=== PATIENT | male | born 1995 ===

== ENCOUNTER 2021-11-27 09:29 | Outpatient (REF) | payer MEDICARE, MEDICAID, SELFPAY ==
[2021-11-27 10:53] LABS: Estimated Average Glucose 111 mg/dL; Hemoglobin A1c % 5.5 %
[2021-11-27 11:07] LABS: Alanine Aminotransferase 23 U/L (0-40); Albumin Level 4.4 g/dL (3.5-5.0); Alkaline Phosphatase 78 U/L (39-117); Aspartate Amino Transferase 14 U/L (5-37); Bilirubin Direct 0.2 mg/dL (0.0-0.5); Bilirubin Total 0.5 mg/dL (0.0-1.0); Total Protein 7.1 g/dL (6.5-8.0)
[2021-11-27 11:21] LABS: Valproate 42.1 mcg/mL (50.0-100.0)
[2021-11-27 11:32] LABS: Insulin 16 uU/mL (2-29)
[2021-11-29 08:26] LABS: Prolactin 11.7 ng/mL (2.0-18.0)
== END 2021-11-27 09:30 | disposition home or self-care (01) ==
LOC: HO.LAB 09:29
PROVIDERS: PCP Internal Medicine; Visit Provider Registered Nurse Psychiatric/Mental Health
DX: F84.0 Autistic disorder (principal); Z51.81 Encounter for therapeutic drug level monitoring; Z79.899 Other long term (current) drug therapy
CPT/HCPCS: 36415; 80076; 80164; 83036; 83525; 84146

== ENCOUNTER 2021-12-29 10:09 | Outpatient (REF) | payer MEDICARE, MEDICAID, SELFPAY ==
[2021-12-29 11:18] LABS: Estimated Average Glucose 108 mg/dL; Hemoglobin A1c % 5.4 %
[2021-12-29 11:25] LABS: Cholesterol 193 mg/dL; HDL Cholesterol 39 mg/dL; LDL Cholesterol Calculated 121 mg/dl; Triglycerides 169 mg/dL
[2021-12-29 11:37] LABS: Insulin 16 uU/mL (2-29)
[2021-12-29 11:50] LABS: Valproate 60.5 mcg/mL (50.0-100.0)
== END 2021-12-29 10:10 | disposition home or self-care (01) ==
LOC: HO.LAB 10:09
PROVIDERS: PCP Internal Medicine; Visit Provider Registered Nurse Psychiatric/Mental Health
DX: F84.0 Autistic disorder (principal); Z79.899 Other long term (current) drug therapy
CPT/HCPCS: 36415; 80061; 80164; 83036; 83525; 84146

== ENCOUNTER 2023-04-03 17:02 | Emergency (ER) | payer MEDICARE, MEDICAID, SELFPAY ==
[2023-04-03 17:06] VITALS: BP 150/100; PULSE 98; RESP 20; TEMP 36; O2SAT 98; BMI 22.4
--- NOTE | 2023-04-03 17:15 | ED_ITS ---
HPI - General Adult General Chief complaint: Fall Stated complaint: Fall Time Seen by Provider: 04/03/23 17:15 Source: patient and family (patient's sister) Mode of arrival: ambulatory Limitations: no limitations History of Present Illness HPI narrative: Patient is a 27 year old assigned male at with a history of left sided blindness presenting to the emergency department today with a face laceration. Patient states that yesterday he tried to get up in the middle of the night when he fell and hit the left side of his face. Patient denies any loss of consciousness, dizziness, lightheadedness, abdominal pain, nausea, vomiting, fever, chills, chest pain, difficulty breathing, shortness of breath, back pain, night sweats, pain with urination, increased urinary frequency, increased urinary urgency, blood in his urine or stool, syncope or a near syncopal episode, recent trauma or falls, bowel incontinence, bladder incontinence, bowel retention, bladder retention, or any other complaints at this time. Onset (ago): day(s) (1) Location: face and left Severity: mild Severity scale (1-10): 2 Relieving factors: none Exacerbating factors: none Associated symptoms: denies other symptoms Treatments prior to arrival: none Related Data Previous Rx's Medication Instructions Recorded cefuroxime axetil 250 mg tablet 250 mg PO BID 7 days #14 tabs 04/03/23 Allergies Allergy/AdvReac Type Severity Reaction Status Date / Time No Known Allergies Allergy Verified 04/03/23 17:09 Review of Systems 2 Constitutional: Constitutional: Reports no additional constitutional complaints, Denies chills, Denies fever(s) and Denies night sweats Eyes: Eyes: Reports no additional eye complaints Comments: chronically blind in left eye ENT: Denies dizziness Comments: left sided facial injury Cardiovascular: Cardiovascular: Reports no additional cardiovascular complaints, Denies chest pain, Denies lightheadedness, Denies Loss of Consciousness and Denies dyspnea Respiratory: Respiratory: Reports no additional respiratory complaints and Denies dyspnea Gastrointestinal: Gastrointestinal: Reports no additional gastrointestinal complaints, Denies abdominal pain, Denies melena, Denies hematochezia, Denies change in bowel habits and Denies change in stool character Genitourinary: Genitourinary: Reports no additional male genitourinary complaints, Denies hematuria, Denies oliguria, Denies difficulty urinating, Denies dysuria, Denies urinary frequency, Denies urinary hesitancy, Denies urinary incontinence and Denies urinary urgency Musculoskeletal: Musculoskeletal: Reports no additional musculoskeletal complaints, Denies numbness and Denies tingling Neurologic: Denies dizziness, Denies numbness and Denies tingling Psychiatric: Psychiatric: Reports no additional psychiatric complaints Endocrine: Endocrine: Reports no additional endocrine complaints Hematologic/Lymphatic: Hematologic/Lymphatic: Reports no additional hematologic/lymphatic complaints Allergic/Immunologic: Allergic/Immunologic: Reports no additional allergic/immunologic complaints PMFSH Past Medical History Attestation statement: The following information was validated with the patient. (all information validated with the patient's sister) Source: old records reviewed, obtained from family (patient's sister provided additional history and confirmed the history provided by the patient. ) and nursing notes reviewed Social History Social History Advance Directives: No Advance Directives Information Provided: No Physical Exam ED Vital Signs: Vital Signs - 24 hr 04/03/23 17:06 Temperature 96.8 F Pulse Rate 98 Respiratory Rate 20 Blood Pressure 150/100 H Pulse Oximetry 98 Oxygen Delivery Method Room Air BMI result Body Mass Index 22.4 Const General: cooperative, no acute distress, alert and awake Nutritional Appearance: well nourished Orientation/consciousness: patient oriented x3 Limitations: no limitations HENMT Ears: hearing grossly normal bilaterally and external ears normal General nose exam: Normal external nose present, no nasal discharge noted and no epistaxis Face images: 2 1. 1.5cm jagged laceration, no gaping Mouth: Normal oral and palatal mucosa present, no drooling and no muffled voice Eyes Other: blindness in left eye Periorbital: periorbital findings normal Eyelids: Yes eyelids normal Conjunctivae: conjunctivae normal Neck Neck: Yes normal visual inspection, Yes full ROM and Yes no lymphadenopathy Chest Chest palpation & inspection: normal inspection of the chest Resp Effort & Inspection: normal respiratory effort and able to speak in complete sentences GI Inspection: Yes normal to inspection Neuro General: patient oriented x3 and moves all extremities Cognition (Neuro): normal cognition Motor exam (neuro): 5/5 motor strength present throughout Sensory Exam: Normal double simultaneous stimulation for sensation Coordination: [id number] test normal Extrem General: Yes normal to inspection, Yes full ROM and Yes capillary refill normal Psych Appearance: grossly normal Mental Status: mental status grossly normal Affect: normal affect Attitude: cooperative Thought process: Normal thought process present Thought content: Normal thought content present Insight: Good insight present (Psych) Medications Administered Discontinued Medications Generic Name Dose Route Start Last Admin Trade Name Yane PRN Reason Stop Dose Admin Cefuroxime Axetil 250 mg 04/03/23 17:29 04/03/23 17:45 Cefuroxime Axetil 250 Mg Tablet PO 04/03/23 17:30 250 mg ONCE ONE Administration Procedures Laceration Laceration 1: Site: face Side (If applicable): left Size (cm): 1.5 Description: irregular Depth: simple, single layer Pre-repair: irrigated extensively and deep structures intact Skin layer closed with: other (dermabond) Size (cm): other (dermabond) Technique: other (dermabond) Medical Decision Making Medical Decision Making MDM Narrative: Patient is a 27 year old assigned male at with a history of left sided blindness presenting to the emergency department today with a facial laceration. Patient's physical exam was as noted in the physical exam portion of this note. I explained my physical exam findings to the patient and the patient's sister. I answered all questions asked by the patient and the patient's sister. Patient's laceration was repaired with dermabond without incident. I stressed the importance of the patient taking his medication as prescribed. I stressed the importance of the patient following up with his primary care provider. I stressed the importance of the patient returning to the emergency department immediately if his symptoms were to worsen or if he were to develop any dizziness, shortness of breath, difficulty breathing, chest pain, blurry vision, loss of vision, nausea, vomiting, abdominal pain, fever, chills, back pain, or any other complaints. Patient and the patient's sister verbalized agreement and understanding with this treatment plan and discharge. Differential Diagnosis Differential Diagnoses: The differential diagnosis associated with the presentation includes Laceration Abrasion Facial injury Admission/Observation Consideration of admission/observation: Escalation of care including admission/observation considered Patient would have been admitted to the hospital had his clinical presentation warranted hospital admission. Independent Historian Clinical information obtained from an independent historian. History obtained from or confirmed by: Other (patient's sister provided additional history and confirmed the history provided by the patient.) Prescription Management I considered prescription management with: Antibiotic (patient prescribed an antibiotic due to the mechanism of injury) Discharge Plan Discharge Clinical Impression: Face lacerations Patient Disposition: Home, Self-Care Instructions: Laceration (DC), Skin Adhesive Care (ED) Additional Instructions: Do NOT get the affected area wet for at LEAST 7 days. The glue will dissolve on its own. Take your antibiotic as prescribed. Follow up with your primary care provider. Return to the emergency department immediately if your symptoms worsen or if you develop any dizziness, shortness of breath, difficulty breathing, chest pain, blurry vision, loss of vision, nausea, vomiting, abdominal pain, fever, chills, back pain, or any other complaints. Prescriptions: New cefuroxime axetil 250 mg tablet 250 mg PO BID 7 Days Qty: 14 0RF Referrals: Fadumo Soares MD [Primary Care Provider] - Interventions: ED Discharge Assessment Last Done: 04/03/23 17:49 Discharge Date/Time: 04/03/23 17:49 Print Language: Kiswahili
[2023-04-03] MEDS: cefuroxime axetiL 250 MG TABLET PO (17:45)
== END 2023-04-03 17:49 | disposition home or self-care (01) ==
PROVIDERS: Emergency Provider Emergency Medicine; PCP Internal Medicine
DX: S01.112A Laceration without foreign body of left eyelid and periocular area, initial encounter (principal); W18.39XA Other fall on same level, initial encounter; Y93.9 Activity, unspecified; Y92.013 Bedroom of single-family (private) house as the place of occurrence of the external cause; Y99.9 Unspecified external cause status
CPT/HCPCS: 12011; 99282; 99283

== ENCOUNTER 2023-08-22 13:40 | Emergency (ER) | payer MEDICARE, MEDICAID, SELFPAY ==
[2023-08-22 14:10] VITALS: BP 106/72; PULSE 101; RESP 18; TEMP 36.3; O2SAT 99; BMI 25.8
--- NOTE | 2023-08-22 14:10 | ED.URI ---
HPI - URI/Sore Throat General Chief Complaint: Ear Problems Stated Complaint: Ear infection? Time Seen by Provider: 08/22/23 15:11 Source: patient, family and RN notes reviewed Mode of arrival: ambulatory Limitations: no limitations History of Present Illness ED Provider: Letha Jerry PA-C HPI Narrative: This is a 27-year-old male , with a history of left-sided blindness, presents emergency department with complaints of left ear pain days patient reports that he recently went swimming pool. He states that he was wearing ear plugs in his ears. He has had pain his left ear since. No fevers or chills. No dizziness, sore throat, cough, abdominal pain, nausea, vomiting or diarrhea. He is otherwise feeling well. Siblings are here with ear pain as well. No other complaints or concerns at this time Onset (ago): day(s) Consistency: constant Severity: mild Able to tolerate fluids by mouth: Yes Exacerbating factors: nothing Relieving factors: nothing Context: sick contacts Associated symptoms: denies other symptoms Treatments prior to arrival: none Related Data Previous Rx's ?Medication ?Instructions ?Recorded cefuroxime axetil 250 mg tablet 250 mg PO BID 7 days #14 tabs 04/03/23 Allergies Allergy/AdvReac Type Severity Reaction Status Date / Time No Known Allergies Allergy Verified 08/22/23 14:11 Review of Systems Review of Systems: Yes all other systems are reviewed and are negative Constitutional: Constitutional: Reports as per [facility] Social History Social History Advance Directives: No Advance Directives Information Provided: Yes Do you have a plan to hurt others: No Plan Physical Exam Vital Signs: Vital Signs: Last Vital Signs Temp 97.3 F 08/22/23 19:05 Pulse 101 H 08/22/23 19:05 Resp 18 08/22/23 19:05 BP 106/72 08/22/23 19:05 Pulse Ox 99 08/22/23 19:05 O2 Del Method Room Air 08/22/23 19:05 BMI result Body Mass Index 25.8 Const: General: cooperative, comfortable and no acute distress Orientation/consciousness: patient oriented x3 Limitations: no limitations HEENT: Other: Bilateral ears with large when cerumen was removed, see procedure note, TMs were nonerythematous, nonbulging. Canal normal. Head: Yes normal to inspection, Yes normocephalic and Yes atraumatic Ears: hearing grossly normal bilaterally General nose exam: Normal external nose present Face and sinus: Yes normal facial exam Mouth: Normal oral and palatal mucosa present, oropharynx normal and moist mucous membranes Throat: Yes posterior oropharynx normal Eyes: General: appearance normal, both eyes and all related structures Eyelids: Yes eyelids normal Conjunctivae: conjunctivae normal Sclerae: sclerae normal Pupils: Equal, round and reactive pupils present EOM: EOMs intact bilaterally Neck: Neck: Yes normal visual inspection, Yes full ROM and Yes no lymphadenopathy Lymphatic: no lymphadenopathy noted Chest: Chest palpation & inspection: normal inspection of the chest Resp: Effort & Inspection: normal respiratory effort and able to speak in complete sentences Auscultation: clear to auscultation bilaterally, no crackles, no rales, no rhonchi and no wheezes Cardio: Rate: regular rate Rhythm: regular rhythm Heart sounds: S1 normal heart sound present and S2 normal heart sound present GI: Inspection: Yes normal to inspection Skin: General skin exam: no rashes or lesions noted Trauma: no lacerations or abrasions Wounds: no wounds Neuro: General: patient oriented x3 and moves all extremities Cranial nerves: Yes Equal, round and reactive pupils present Extrem: General: Yes normal to inspection Right upper extremity: normal to inspection Left upper extremity: normal to inspection Right lower extremity: normal to inspection Left lower extremity: normal to inspection Course Course Course Narrative: This is a rapid medical exam. Deferred additional HPI, ROS, PE to primary provider. 27 yo male with history of ADHD, developmentally delayed, seizure disorder here with complaints of left ear pain since yesterday. Will send covid, strep testing VSS -Zane. Onur MARISCAL Medications Administered Discontinued Medications Generic Name Dose Route Start Last Admin Trade Name Freq PRN Reason Stop Dose Admin Docusate Sodium 100 mg 08/22/23 17:22 08/22/23 17:50 Docusate Sodium 100 Mg/10 Ml Liquid PO 08/22/23 17:23 100 mg ONCE ONE Administration Medical Decision Making Medical Decision Making [facility] Narrative: This is a 27-year-old male who presents emergency department with complaints of left ear pain x3 days. On arrival, vital signs within normal limits. Patient has notable cerumen impaction noted bilaterally. Ears were soaked with Colace, and irrigated. Large amount of cerumen was extracted from both canals. Patient tolerated procedure well without any complications or concerns. No evidence of otitis media or externa on examination. Discussed findings with patient as well as family at bedside. He understands and agrees with plan. Patient stable for discharge. Differential Diagnosis Differential Diagnoses: The differential diagnosis associated with the presentation includes Cerumen impaction, otitis media, otitis externa, mastoiditis, foreign body Lab Data MDM Lab Attestation statement: I reviewed the patient's lab results. Labs: Lab Results 08/22/23 08/22/23 Range/Units 14:20 15:24 COVID-19 (LISY) Negative (Negative) COVID-19 Clin Com See Note Influenza Type A (KATHYA) Negative (Negative) Influenza Type B (KATHYA) Negative (Negative) Influenza A & B Note See Note S. pyogenes GrpA KATHYA Negative (Negative) Radiology Impression Discussion of test interpretation with radiology: I have reviewed the radiologist's reading. External Record Review External record reviewed: Inpatient record, Office record, Outpatient record, Prior outpatient labs, Prior outpatient radiology, Primary care record and Outside ED record Procedures Ear Wax Removal Both Ears: Cerumenolytic Used: Colace and 5-10% Sodium Bicarb solution Results: Re-examined: cerumen removed completely TM Examination: TM(s) intact, normal appearance Ear Canal Exam: atraumatic Patient Tolerated Procedure: well Complications: no problems Technique: ear canal irrigated and ear canal curetted Discharge Plan Discharge Clinical Impression: Bilateral impacted cerumen Patient Disposition: Home, Self-Care Additional Instructions: You were seen in the emergency department today and you had bilateral cerumen impaction. We successfully removed a large amount of cerumen out of both of your ears. Please avoid Q-tips. If any new or worsening symptoms occur including but not limited to fevers, chills, chest pain, shortness of breath, please return for re-evaluation Prescriptions: No Action cefuroxime axetil 250 mg tablet 250 mg PO BID 7 Days Qty: 14 0RF Interventions: ED Discharge Assessment Last Done: 08/22/23 19:05 Discharge Date/Time: 08/22/23 19:06 Print Language: Maltese
[2023-08-22 14:47] LABS: IDNOW Serial# 6674DD1D; Strep A Nucleic Acid Negative (Negative)
[2023-08-22 14:51] LABS: COVID-19 Test Negative (Negative); IDNOW Serial# 16C4AD1C
[2023-08-22 16:02] LABS: IDNOW Serial# 9DB6401D; Influenza A Negative (Negative); Influenza B2 Negative (Negative)
[2023-08-22] MEDS: Docusate Sodium 100 MG/10 ML LIQUID PO (17:50)
[2023-08-22 19:05] VITALS: BP 106/72; PULSE 101; RESP 18; TEMP 36.3; O2SAT 99
== END 2023-08-22 19:06 | disposition home or self-care (01) ==
PROVIDERS: Nurse Practitioner Family; Physician Assistant Medical; Emergency Provider Emergency Medicine
DX: H92.03 Otalgia, bilateral (principal); H61.23 Impacted cerumen, bilateral; Z11.52 Encounter for screening for COVID-19; Z79.899 Other long term (current) drug therapy
CPT/HCPCS: 69209; 87502; 87635; 87651; 99282; 99283; 99284

== ENCOUNTER 2025-01-21 15:54 | Emergency (ER) | payer MEDICARE, MEDICAID, SELFPAY ==
--- NOTE | ~2025-01-21 | CT_ITS ---
CLINICAL HISTORY: head injury CT head without contrast Comparison: None provided Findings: No intra-axial mass, midline shift, hydrocephalus, or acute hemorrhage. No significant atrophy-like change or white matter disease. The visualized paranasal sinuses and mastoid air cells are normal. Left phthisis bulbi. There is no acute fracture. IMPRESSION: 1. Left phthisis bulbi. 2. No acute intracranial findings. This document has been electronically signed by: Seven Street MD on 01/21/2025 21:00:53
--- NOTE | ~2025-01-21 | XR_ITS ---
CLINICAL HISTORY: fall 3 view left hand Comparison: None provided Findings: Bones intact. No dislocations. No significant loss of joint space or osteophytes. No erosions. No radiopaque foreign body. IMPRESSION: 1. No acute findings This document has been electronically signed by: Seven Street MD on 01/21/2025 20:53:48
[2025-01-21 15:59] VITALS: BP 143/90; PULSE 99; RESP 18; TEMP 36.2; O2SAT 97; BMI 22.0
--- NOTE | 2025-01-21 15:59 | ED_ITS ---
HPI - General Adult General Stated complaint: General Medical Related Data Previous Rx's ?Medication ?Instructions ?Recorded cefuroxime axetil 250 mg tablet 250 mg PO BID 7 days # 14 tabs 04/03/23 Allergies Allergy/AdvReac Type Severity Reaction Status Date / Time No Known Allergies Allergy Verified 08/22/23 14:11 Course Course Course Narrative: Medical screening exam performed. Please refer to detailed history, exam, evaluation, and management by primary provider. Tripped and fell into dog crate, laceration to left palm and right cheek. Up-to-date on tetanus. Patient legally blind. Discharge Plan Discharge Prescriptions: No Action cefuroxime axetil 250 mg tablet 250 mg PO BID 7 Days Qty: 14 0RF Print Language: Armenian
[2025-01-21 19:13] VITALS: BP 137/93; PULSE 92; RESP 16; O2SAT 97
--- NOTE | 2025-01-21 19:32 | ED_ITS ---
HPI - Fall General Chief Complaint: Fall Stated Complaint: General Medical Time Seen by Provider: 01/21/25 19:07 History of Present Illness HPI Narrative: Patient is a 29-year-old male status post accidental fall. Patient tripped over a cage. Hit the palm of the left hand. Hit the chin on the right face. Patient is mentally challenged. Legally blind. He denies having any vomiting. There was no loss of consciousness reported. Moving everything. Unsure about his tetanus status. Related Data Previous Rx's ?Medication ?Instructions ?Recorded cefuroxime axetil 250 mg tablet 250 mg PO BID 7 days # 14 tabs 04/03/23 Allergies Allergy/AdvReac Type Severity Reaction Status Date / Time No Known Allergies Allergy Verified 01/21/25 16:03 Review of Systems Review of Systems: Positive head injury Yes all other systems are reviewed and are negative [facility] Past Medical History Attestation statement: The following information was validated with the patient. Social History Social History Smoked in Last 30 Days: No Use of substances other than those prescribed or required for medical reasons: No Advance Directives: No Advance Directives Information Provided: No Physical Exam Exam: Exam: Appearance: Alert. Oriented X3. No acute distress. Eyes: Pupils equal, round and reactive to light. A small laceration approximately 3 cm in size over the left ontiveros. ENT: Pharynx normal. Neck: Normal inspection. Neck supple. No lymph nodes noted. No crepitus CVS: Normal heart rate and rhythm. Pulses normal. Normal S1 and S2 Respiratory: No respiratory distress. Breath sounds normal. No Wheezing. No rales Abdomen: Soft and nontender. No rigidity. No distention. good BS x4 Skin: Skin warm and dry. Normal skin color. Normal skin turgor. Extremities: No lower extremity edema. Neurovascular intact to all extremities. No Lacerations. No Rash. Abrasion noted over the left hand on the palmar side near the thenar area. Opposition of the thumb movement of the finger sensation intact. Movement over the digits intact. Sensation over the median radial and ulnar nerve intact. Other than the small abrasion/laceration. The skin is intact. Neuro: Oriented X self and place. Moving all extremities Vital Signs: Vital Signs: Last Vital Signs Temp 97.1 F 01/21/25 15:59 Pulse 92 01/21/25 19:13 Resp 16 01/21/25 19:13 BP 137/93 H 01/21/25 19:13 Pulse Ox 97 01/21/25 19:13 O2 Del Method Room Air 01/21/25 19:13 BMI result Body Mass Index 22.0 Medications Administered Discontinued Medications Generic Name Dose Route Start Last Admin Trade Name Freq PRN Reason Stop Dose Admin Diphtheria/Tetanus/Acell Pertussis 0.5 ml 01/21/25 19:29 01/21/25 19:33 Diphth,Pertus(Acell),Tet Adult 0.5 Ml Syringe IM 01/21/25 19:30 0.5 ml .ONCE ONE Administration Procedures Laceration Right face: Site: face Side (If applicable): right Size (cm): 3 Description: linear Technique: skin adhesive Medical Decision Making Medical Decision Making MDM Narrative: Status post accidental fall. Patient's CT scan of the head was grossly negative for any acute evidence of bleeding. I reviewed radiology's reading. Patient's x-ray of the hand showed no acute fracture. Tetanus was updated. Patient's wound was closed using Dermabond. Additional Steri-Strips was used for the hand. Currently in stable condition. No overt tendon injury noted. Currently in stable condition will discharge home. Differential Diagnosis Differential Diagnoses: The differential diagnosis associated with the presentat ion includes Fracture, laceration, bleed Admission/Observation Consideration of admission/observation: Escalation of care including admission/observation considered Lab Data [facility] Lab Attestation statement: I reviewed the patient's lab results. Independent Interpretation I performed an independent interpretation of an: Plain X-Ray (X-ray of the left hand grossly negative) and CT Scan (CT head grossly negative) Radiology Impression Discussion of test interpretation with radiology: I have reviewed the radiologist's reading. External Record Review External record reviewed: Inpatient record Chronic Conditions History of cerebral palsy Social Determinants Patient?s care significantly limited by Social Determinants of Health including: Problems related to primary support group Discharge Plan Discharge Clinical Impression: Head injury, Face lacerations, Contusion of hand, Hand laceration Patient Disposition: Home, Self-Care Instructions: Head Injury (DC), Skin Adhesive Care (ED) Prescriptions: No Action cefuroxime axetil 250 mg tablet 250 mg PO BID 7 Days Qty: 14 0RF Referrals: Group,[facility] [Primary Care Provider, Primary Care] - 01/23/25 Print Language: Turkish
[2025-01-21] MEDS: Diphth,Pertus(ACell),Tet Adult 0.5 ML SYRINGE IM (19:33)
[2025-01-21 21:31] VITALS: BP 137/93; PULSE 92; RESP 16; TEMP 36.7; O2SAT 97
== END 2025-01-21 21:39 | disposition home or self-care (01) ==
PROVIDERS: Emergency Provider Emergency Medicine Emergency Medical Services
DX: S09.90XA Unspecified injury of head, initial encounter (principal); S01.81XA Laceration without foreign body of other part of head, initial encounter; S61.412A Laceration without foreign body of left hand, initial encounter; W01.0XXA Fall on same level from slipping, tripping and stumbling without subsequent striking against object, initial encounter; Y93.9 Activity, unspecified; Y92.9 Unspecified place or not applicable; Z23 Encounter for immunization
CPT/HCPCS: 12013; 70450; 73130; 90471; 90715; 99284

== ENCOUNTER → 2025-01-21 19:29 | Outpatient (BNV) | payer MEDICARE, MEDICAID, SELFPAY | PROVIDERS: Emergency Provider Emergency Medicine Emergency Medical Services; Visit Provider Radiology Diagnostic Radiology | DX: S09.90XA Unspecified injury of head, initial encounter (principal); H44.522 Atrophy of globe, left eye; Z04.3 Encounter for examination and observation following other accident | CPT/HCPCS: 70450; 73130 ==